=== PATIENT | male | born 2000 | race Caucasian/White ===

== ENCOUNTER 2023-11-30 10:26 | Outpatient (CLI) | payer OTHER, SELFPAY | END 2023-11-30 10:27 | disposition home or self-care (01) | PROVIDERS: Visit Provider Family Medicine | DX: F19.10 Other psychoactive substance abuse, uncomplicated (principal); F32.9 Major depressive disorder, single episode, unspecified; F41.1 Generalized anxiety disorder | CPT/HCPCS: 80053; 82306; 84443 ==